=== PATIENT | male | born 1965 | race Caucasian/White ===

== ENCOUNTER 2023-09-24 16:50 | Emergency (ER) | payer OTHER, SELFPAY ==
[2023-09-24 17:15] VITALS: BP 140/92
[2023-09-24 19:11] VITALS: BP 139/85
[2023-09-24 19:15] LABS: % Basophils 1.3 % (0-2); % Eosinophils 5.7 % (0-6); % Immature Granulocytes 0.4 % (0-0.5); % Lymphocytes 24.2 % (20.5-51.1); % Monocytes 7.7 % (1.7-9.3); % Neutrophils 60.7 % (42.2-75.2); Absolute Basophils 0.1 10^3/uL (0-0.2); Absolute Eosinophils 0.6 10^3/uL (0-0.7); Absolute Lymphocytes 2.6 10^3/uL (1.2-3.4); Absolute Monocytes 0.8 10^3/uL (0.1-0.6); Absolute Neutrophils 6.4 10^3/uL (1.4-6.5); Hematocrit 53.1 % (39.0-52.0); Hemoglobin 18.6 g/dL (13.0-18.0); Mean Corpuscular Volume 85.8 fL (80.0-94.0); Mean Platelet Volume 8.6 fL (7.4-10.4); Nucleated Red Blood Cells % 0 % (-); Platelet Count 251 10^3/uL (130-400); Red Blood Cell Count 6.19 10^6/uL (4.70-6.10); Red Cell Dist. Width 12.9 % (11.5-14.5); White Blood Cell Count 10.5 10^3/uL (4.8-10.8)
[2023-09-24 19:27] LABS: APTT 31.5 Sec (23.4-35.0)
[2023-09-24 19:39] LABS: NT-proBNP < 20.0 pg/ml; Troponin I < 0.012 ng/ml
[2023-09-24 19:43] LABS: ALT (SGPT) 36 U/L (0-50); AST (SGOT) 40 U/L (17-59); Albumin 4.8 g/dl (3.5-5.0); Alkaline Phosphatase 51 U/L (38-126); Blood Urea Nitrogen 19 mg/dl (9-20); Calcium 9.6 mg/dl (8.4-10.2); Carbon Dioxide 26 mmol/L (22-30); Chloride 102 mmol/L (98-107); Glucose 89 mg/dl (70-99); Potassium 4.5 mmol/L (3.5-5.1); Sodium 134 mmol/L (135-145); Total Bilirubin 0.7 mg/dl (0.2-1.3); Total Protein 7.6 g/dl (6.3-8.2); eGFR > 60.00
[2023-09-24 20:12] VITALS: BP 127/74
[2023-09-24 20:50] VITALS: BP 137/90; BP 147/80; PULSE 74; PULSE 75
--- NOTE | 2023-09-24 20:51 | ED.GENMED ---
History of Present Illness
General
Chief Complaint: Breathing Problem
Source: patient
Exam Limitations: none
Time Seen by Provider: 09/24/23 20:03
Nursing documentation reviewed up to this point in time: agreed with
Travel History
Have you had any contact with someone who has COVID-19?: No
Do you have any symptoms of coronavirus? Fever > 100 degrees, chills, cough, shortness of breath, sore throat, loss of taste or smell, muscle aches, or headache?: No
History of Present Illness
History of Present Illness:
57-year-old male with a history of low testosterone on testosterone therapy, hyperlipidemia, family history of sudden /coronary disease presents for episodic shortness of breath and lightheadedness over the last couple of days. Patient says it
started actually before shoulder surgery which he had on 1�26 at [facility]. It was an arthroscopic right shoulder surgery to clean out his shoulder after previous surgery a year before. Patient says the day before the surgery he noticed a little bit
of windedness but he thought it was because he was stressed. He had the surgery, the following day felt okay, just fatigued from the anesthesia. He is not taking any pain meds. The following day on 1�28 he noticed an episode where he walked
about 100 yards and felt winded. This was unusual. He never got chest pain. He said he felt a little bit lightheaded during this episode. The following day he had another episode where he walked from the car into his house and felt a little bit
winded. He called [facility] and spoke with them and they said to follow-up with his family doctor which she did the following day. Patient said that they did an EKG in the office and sent him for outpatient labs. Patient said at this point he has
not had exertional symptoms anymore. He has had actual symptoms sometimes at rest but very sparingly, lasting a couple of minutes where he feels lightheaded and a little winded. The outpatient labs included a D-dimer and he was told that if his
dimer was elevated he should come to the hospital for CAT scan. Patient has not had any leg swelling, cough, URI symptoms, syncope, room spinning dizziness, headache or neck pain. He has had no vision changes
Patient takes his blood pressure during these episodes at home and they have been normal, 120s over 80s. He came today because of the known elevated D-dimer and he came for a CAT scan to rule out a blood clot. Patient has not had any pleural pain,
he has no symptoms currently and says the last time he felt symptoms was while watching TV on the couch at 1 PM today.
Past History
Past History
ED Past Medical History: Hypercholesterolemia and Other (Chronic sinus disease, Diverticulosis)
ED Past Surgical History: Bowel resection (Sigmoid bowel resection August 2021), Orthopedic and Other (hernia repair)
Social History
Tobacco: Former smoker
Alcohol: Occasional
Drug: None
Personal:
Living: with family
Employment: Employed
Family History
Family History: Diabetes and CAD
Phy Exam
Physical Exam
Physical Exam:
GENERAL: Alert , in no apparent distress, no tachypnea, very comfortable, speaking in full sentences
EYE: pupils equal and reactive
NECK: Supple
ENT: o/p clr, mmm.
CARDIAC: Regular rate and rhythm .
LUNGS: Clear breath sounds bilaterally, no acute respiratory distress, no wheezes/rales/rhonchi
ABDOMEN: Soft, without focal tenderness, no r/g, no cvat, normal bowel sounds
NEUROLOGICAL: Alert and oriented, no focal neuro deficits
SKIN: Warm and dry, skin intact.
MUSCULOSKELETAL: No edema, well perfused. neg fareed's sign
PSYCH: Normal and appropriate interaction.
Scores
Heart Failure Risk
Heart Failure Risk Score: Not Applicable
Course
Orders/Labs/Results
Orders:
Orders
09/24/23 18:52
ECG [Electrocardiogram (*1)] Urgent
Reason for Study: Shortness of Breath
EKG- Treatment ONCE
09/24/23 18:54
Complete Blood Count/With Diff Urgent
Comprehensive Metabolic Panel Urgent
NT-proBNP Urgent
PTT Urgent
Troponin I Urgent
09/24/23 20:01
CT Chest Pe Study Urgent
Comment:
Reason For Exam: SOB recent surgery
Abnormal Lab Results
09/24/23
18:54
RBC 6.19 H 10^6/uL
(4.70-6.10)
Hgb 18.6 H g/dL
(13.0-18.0)
Hct 53.1 H %
(39.0-52.0)
Absolute Monos (auto) 0.8 H 10^3/uL
(0.1-0.6)
Sodium 134 L mmol/L
(135-145)
09/24/23 18:54
09/24/23 18:54
Vital Signs
Initial and Last Documented VS:
Initial Vital Signs
Temp Pulse Resp BP Pulse Ox
98.9 F 84 18 140/92 98
09/24/23 17:15 09/24/23 17:15 09/24/23 17:15 09/24/23 17:15 09/24/23 17:15
Last Documented Vital Signs
Temp Pulse Resp BP Pulse Ox
98.9 F 73 18 127/74 99
09/24/23 17:15 09/24/23 20:12 09/24/23 20:12 09/24/23 20:12 09/24/23 20:12
MDM/Problems Addressed
Differential Diagnosis Includes:
pneurmonia, PE, anxiety, chf, acs, aoritc stenosis
MDM/Problems Addressed:
57 y/o M with recent shoulder surgery having episodes of both exertional dyspnea and dsypnea at rest associated with lightheadedness but not syncope
Over the last several days. Patient has not had significant symptoms or continuous symptoms but very sporadic and sparing symptoms however he had seen his family doctor who sent an outpatient D-dimer which was elevated so he was sent in. Patient
has been on testosterone for a long time. He has a slight erythrocytosis but otherwise his labs were unremarkable, he had a nonischemic EKG, and negative CT PE study. His orthostatics were negative, he did drop systolic blood pressure about 10
with standing but had no change in his heart rate and no symptoms. Patient is not having any neck pain or dizziness associated with turning his head, headache, concern for carotid dissection. He was able to ambulate without dropping his oxygen
saturation. I discussed the case with ED attending we both felt that the patient could be safely discharged at this time for outpatient cardiology follow-up which she already has scheduled.
*Critical Care Note
Total Time (30-74mins, 75-104mins- exclusive of procedures): Not Applicable
ED Attending Note
-
Portions of this chart may have been created with voice recognition software.� Occasional wrong word or��sound alike� substitutions may have occurred due to the inherent limitations of voice recognition software.
Discharge Plan
Departure
Patient Disposition: Home (Routine Discharge)
Date of Disposition: 09/24/23
Time of Disposition: 20:58
Patient with high blood pressure during this ER visit?: No
Condition: Fair
Covid-19: Not Applicable
Discharge Problem:
Dyspnea
Instructions: Shortness of Breath (Dyspnea) (DC)
Prescriptions:
No Action
testosterone [AndroGel] 75 GM gel in metered-dose pump
1.62 mg topical .MONTUTHUFR
Patient Comments:
5 days a week
psyllium husk (aspartame) [Metamucil Fiber Singles] 1 PACKET powder in packet
1 packet PO DAILY PRN (Reason: constipation)
cholecalciferol (vitamin D3) 1,000 UNITS tablet
1,000 units PO DAILY
Super Beet
1 tab PO DAILY
amoxicillin-pot clavulanate 1 TABLET tablet
1 tab PO BID Qty: 20 0RF
Referrals:
Nico Redman MD [Family Provider] - Follow up in 2-3 days
Activity Restrictions/Additional Instructions:
Your workup here today was very reassuring. Your red cells were a smidgen high at 18. Please make sure your family doctor knows this regarding her testosterone dose. But you had no signs of congestive heart failure, pneumonia, blood clot, heart
attack. You should be very careful with what you do as far as exertion for right now. Make sure to return for any worsening symptoms like chest pain, worsening shortness of breath with walking, passing out, fevers or chills etc. Otherwise
follow-up with your doctor next week and make sure to see the central office mechanic. You can try calling and saying that you were in the ER to move up your appointment from October.
Interventions
Interventions:
*Risk Screen - Suicide Last Done: 09/24/23 19:11
*General Assessment Last Done: 09/24/23 19:11
*Neglect/Abuse Screening Last Done: 09/24/23 19:11
ED- Fall Risk Assessment Last Done: 09/24/23 19:11
*ED COVID-19 Vaccine History Last Done: 09/24/23 17:15
*Nursing Disposition Last Done: 09/24/23 21:08
ED- Cardiac Assessment Last Done: 09/24/23 19:11
ED- Pulmonary Assessment Last Done: 09/24/23 19:11
Discharge Date and Time
Discharge Date/Time: 09/24/23 21:09
== END 2023-09-24 21:09 | disposition home or self-care (01) ==
LOC: EMR 16:50
PROVIDERS: EMERGENCY PHYSICIAN Emergency Medicine; FAMILY PHYSICIAN Family Medicine
DX: R06.09 Other forms of dyspnea (principal); R42 Dizziness and giddiness; Z87.891 Personal history of nicotine dependence
CPT/HCPCS: 99285; 71275; 80053; 83880; 84484; 85025; 85730; 93005; Q9967

== ENCOUNTER 2025-06-30 09:48 | Emergency (ER) | payer OTHER, SELFPAY ==
[2025-06-30 09:53] VITALS: BP 175/103
[2025-06-30 10:00] VITALS: BP 190/100
--- NOTE | 2025-06-30 10:42 | ED.GENMED ---
History of Present Illness
General
Chief Complaint: Breathing Problem
Time Seen by Provider: 06/30/25 10:21
History of Present Illness
History of Present Illness:
59-year-old male with history of spinal stenosis/chronic back pain and hyperlipidemia presents to the emergency department for evaluation of dyspnea on exertion that has been gradually worsening for the past several months. 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 Denies any exertional chest pain or leg swelling. No associated fevers or chills. Does admit to occasional tobacco use but has discontinued this over the past
3 weeks. Has been undergoing epidural injections for his spinal stenosis and admits to essentially being very sedentary due to worsening back pain. Has a significant family history of precocious coronary disease.
Past History
Past History
ED Past Medical History: Hypercholesterolemia and Other (Chronic sinus disease, Diverticulosis)
ED Past Surgical History: Bowel resection (Sigmoid bowel resection August 2021), Orthopedic and Other (hernia repair)
Social History
Tobacco: Former smoker
Alcohol: Occasional
Drug: None
Personal:
Living: with family
Employment: Employed
Family History
Family History: Diabetes and CAD
Review of Systems
Review of Systems
Allergies reviewed?: Yes
All Other Systems: ROS reviewed and negative except as documented in HPI and ROS
Phy Exam
Physical Exam
Physical Exam:
GEN: Well appearing, NAD, WDWN
HEENT: Oral mucosa moist, no scleral icterus
Cardiac: Regular rate and rhythm, no murmur
Lung: No respiratory distress, no tachypnea, lungs clear to auscultation
MSK: No gross deformity or injuries
Skin: Good color, no pallor or jaundice, no rashes
Neuro: AO x3, moves all extremities freely
Psych: Calm, cooperative
Scores
Heart Failure Risk
Heart Failure Risk Score: Not Applicable
Course
Orders/Labs/Results
Orders:
Orders
06/30/25 09:57
EKG [Electrocardiogram (*1)] Urgent
Reason for Study: Shortness of Breath
EKG- Treatment ONCE
06/30/25 10:37
CR Chest - 2 Views Urgent
Comment:
Reason For Exam: DASH
06/30/25 11:00
Complete Blood Count/With Diff Urgent
Comprehensive Metabolic Panel Urgent
D-Dimer Urgent
NT-proBNP Urgent
Troponin I Urgent
Abnormal Lab Results
06/30/25
11:00
RBC 6.20 H 10^6/uL
(4.70-6.10)
Hct 52.2 H %
(39.0-52.0)
Absolute Monos (auto) 0.8 H 10^3/uL
(0.1-0.6)
Lymphocytes % 17.2 L %
(20.5-51.1)
06/30/25 11:00
06/30/25 11:00
Vital Signs
Initial and Last Documented VS:
Initial Vital Signs
Temp Pulse Resp BP Pulse Ox
98.6 F 79 16 175/103 96
06/30/25 09:53 06/30/25 09:53 06/30/25 09:53 06/30/25 09:53 06/30/25 09:53
Last Documented Vital Signs
Temp Pulse Resp BP Pulse Ox
98.6 F 72 16 154/77 99
06/30/25 09:53 06/30/25 12:00 06/30/25 09:53 06/30/25 12:00 06/30/25 12:00
MDM/Problems Addressed
MDM/Problems Addressed:
Patient's workup is grossly unremarkable. He has no chest pain concerning for angina however his progressive exertional dyspnea is certainly concerning, doubt this represents CHF. Chronic conditions such as pulmonary Kiko hypertension versus
interstitial lung disease versus physical deconditioning are considered. Recommend outpatient echocardiogram and cardiology follow-up for further clarity
Comment
Comment:
EKG independently interpreted by me shows normal sinus rhythm at a rate of [address] changes concerning for ischemia
*Pulse Oximetry
SaO2: 96
Oxygen Mode of Delivery: Room air
Patient hypoxic: no
*Critical Care Note
Total Time (30-74mins, 75-104mins- exclusive of procedures): Not Applicable
ED Attending Note
-
Portions of this chart may have been created with voice recognition software.� Occasional wrong word or��sound alike� substitutions may have occurred due to the inherent limitations of voice recognition software.
Discharge Plan
Departure
Patient Disposition: Home (Routine Discharge)
Date of Disposition: 06/30/25
Time of Disposition: 11:55
Patient with high blood pressure during this ER visit?: Yes
Discharge Problem:
Exertional dyspnea
Instructions: Shortness of Breath (Dyspnea) (DC)
Prescriptions:
No Action
testosterone [AndroGel] 75 GM gel in metered-dose pump
1.62 mg topical .MONTUTHUFR
Patient Comments:
5 days a week
psyllium husk [Metamucil Fiber (aspartame)] 1 PACKET powder in packet
1 packet PO DAILY PRN (Reason: constipation)
cholecalciferol (vitamin D3) 1,000 UNITS tablet
1,000 units PO DAILY
Super Beet
1 tab PO DAILY
amoxicillin-pot clavulanate 1 TABLET tablet
1 tab PO BID Qty: 20 0RF
Referrals:
Allen Sanders DO [Active, Cardiology]
Nico Redman MD [Family Provider, Family Practice]
Activity Restrictions/Additional Instructions:
Follow-up with the contact lens blocker and cutter listed, if you cannot see the contact lens blocker and cutter within the next 2 to 3 months please contact your primary care physician and asked them to order an echocardiogram if possible. Your blood pressure was markedly elevated in
the ER, please follow-up with either cardiology or primary care doctor to have this reevaluated and discuss methods to reduce your blood pressure
Interventions
Interventions:
*Risk Screen - Suicide Last Done: 06/30/25 09:53
*General Assessment Last Done: 06/30/25 10:45
*Neglect/Abuse Screening Last Done: 06/30/25 09:53
*ED- Fall Risk Assessment Last Done: 06/30/25 10:45
*ED COVID-19 Vaccine History Last Done: 06/30/25 10:45
*ED Influenza Vaccine History Last Done: 06/30/25 10:45
*Nursing Disposition Last Done: 06/30/25 12:40
ED- Cardiac Assessment Last Done: 06/30/25 11:42
ED- Pulmonary Assessment Last Done: 06/30/25 11:42
Discharge Date and Time
Discharge Date/Time: 06/30/25 12:39
Print Language: SAMI
[2025-06-30 10:44] VITALS: BMI 36.3
[2025-06-30 11:09] LABS: Hematocrit 52.2 % (39.0-52.0); Hemoglobin 17.4 g/dL (13.0-18.0); Mean Corp Hgb Conc. 33.3 g/dL (33.0-37.0); Mean Corpuscular Volume 84.2 fL (80.0-94.0); Nucleated Red Blood Cells % 0 % (-); Platelet Count 218 10^3/uL (130-400); Red Cell Dist. Width 14.0 % (11.5-14.5)
[2025-06-30 11:23] LABS: ALT (SGPT) 27 U/L (0-50); AST (SGOT) 26 U/L (17-59); Albumin 4.4 g/dl (3.5-5.0); Alkaline Phosphatase 52 U/L (38-126); Blood Urea Nitrogen 14 mg/dl (9-20); Calcium 10.0 mg/dl (8.4-10.2); Carbon Dioxide 25 mmol/L (22-30); Chloride 103 mmol/L (98-107); Estimated Creatinine Clearance 108 ml/min; Glucose 95 mg/dl (70-99); Potassium 4.5 mmol/L (3.5-5.1); Sodium 136 mmol/L (135-145); Total Protein 6.9 g/dl (6.3-8.2); eGFR > 60.00
[2025-06-30 11:24] LABS: D-Dimer 0.49 ug/mlFEU (0.00-0.50)
[2025-06-30 11:33] LABS: Troponin I 0.016 ng/ml
[2025-06-30 12:00] VITALS: BP 154/77
== END 2025-06-30 12:39 | disposition home or self-care (01) ==
LOC: EMR 09:48
PROVIDERS: Physician Assistant; EMERGENCY PHYSICIAN Emergency Medicine; FAMILY PHYSICIAN Family Medicine
DX: R06.02 Shortness of breath (principal); E78.00 Pure hypercholesterolemia, unspecified; M48.00 Spinal stenosis, site unspecified; Z87.891 Personal history of nicotine dependence
CPT/HCPCS: 99284; 71046; 80053; 83880; 84484; 85025; 85379; 93005

== ENCOUNTER 2025-08-11 07:48 | Emergency (ER) | payer OTHER, SELFPAY ==
[2025-08-11 08:10] VITALS: BP 157/95
[2025-08-11 08:56] LABS: COVID-19 Antigen Negative (Negative)
--- NOTE | 2025-08-11 09:26 | ED.GENMED ---
History of Present Illness
General
Chief Complaint: Throat Problem
Source: patient
Exam Limitations: none
Time Seen by Provider: 08/11/25 09:02
Nursing documentation reviewed up to this point in time: agreed with
History of Present Illness
History of Present Illness:
see MDM
Past History
Past History
ED Past Medical History: Hypercholesterolemia and Other (Chronic sinus disease, Diverticulosis)
ED Past Surgical History: Bowel resection (Sigmoid bowel resection August 2021), Orthopedic and Other (hernia repair)
Social History
Tobacco: Former smoker
Alcohol: Occasional
Drug: None
Personal:
Living: with family
Employment: Employed
Family History
Family History: Diabetes and CAD
Review of Systems
Review of Systems
Allergies reviewed?: Yes
All Other Systems: Not applicable
Phy Exam
Physical Exam
Physical Exam:
GENERAL: Alert , in no apparent distress
EYE: pupils equal and reactive
NECK: Supple
ENT: b/l TM s clear, pharynx erythematous uvula is mildly to moderately swollen; no exudate; midline; phonation normal, tolerating secretions
CARDIAC: Regular rate and rhythm, no edema
LUNGS: Clear breath sounds bilaterally, no acute respiratory distress, no wheezes/rales/rhonchi, occ cough
ABDOMEN: Soft, without focal tenderness, no r/g, no cvat, normal bowel sounds
NEUROLOGICAL: Alert and oriented, no focal neuro deficits
SKIN: Warm and dry, skin intact.
MUSCULOSKELETAL: No edema, well perfused.
PSYCH: Normal and appropriate interaction.
Course
Orders/Labs/Results
Orders:
Orders
08/11/25 08:19
COVID-19 Antigen Urgent
Source: Nasal Swab
INF RAPID [Influenza A+B Rapid Molecular] Urgent
MARIBEL Source: Nasal Swab
Specimen Description:
Date Specimen was Collected: 08/11/25
Time Specimen was Collected: 08:13
Rapid Strep Group A Urgent
MARIBEL Source: Throat/Pharynx
Specimen Description:
Date Specimen was Collected: 08/11/25
Time Specimen was Collected: 08:13
08/11/25 09:21
Acetaminophen [Tylenol] 1,000 mg PO NOW STA
Dexamethasone Sod Phosphate [Decadron] 10 mg IV NOW STA
Neck Soft Tissue [CR Soft Tissue Neck ] Urgent
Comment:
Reason For Exam: sore throat, swollen uvula, eval epiglottis
08/11/25 09:22
CR Chest - 2 Views Urgent
Comment:
Reason For Exam: cough, slight hemoptysis
08/11/25 10:09
Complete Blood Count/With Diff Urgent
Comprehensive Metabolic Panel Urgent
08/11/25 11:05
Ketorolac [Toradol] 30 mg IV NOW STA
Abnormal Lab Results
08/11/25
10:09
RDW 16.6 H %
(11.5-14.5)
Absolute Monos (auto) 0.8 H 10^3/uL
(0.1-0.6)
Monocytes % 9.9 H %
(1.7-9.3)
08/11/25 10:09
08/11/25 10:09
Vital Signs
Initial and Last Documented VS:
Initial Vital Signs
Temp Pulse Resp BP Pulse Ox
37.2 C 85 20 157/95 96
08/11/25 08:10 08/11/25 08:10 08/11/25 08:10 08/11/25 08:10 08/11/25 08:10
Last Documented Vital Signs
Temp Pulse Resp BP Pulse Ox
36.6 C 76 18 142/91 97
08/11/25 11:12 08/11/25 11:12 08/11/25 11:12 08/11/25 11:12 08/11/25 11:12
MDM/Problems Addressed
Differential Diagnosis Includes:
see MDM
MDM/Problems Addressed:
Note:
CHIEF COMPLAINT(S)
Throat discomfort, sensation of airway restriction, and hemoptysis (coughing up blood).
HISTORY OF PRESENT ILLNESS
The patient is a 59-year-old male with a history of high cholesterol, hypertension, and low testosterone. The patient presented with complaints of throat discomfort since approximately 4:00 AM, a sensation of airway restriction, and coughing
accompanied by a small amount of blood mixed with mucus. The patient described the sensation as feeling like there is a 'flap' at the back of the throat, affecting free airway passage. The patient has undergone previous nasal and sinus surgeries
related to a deviated septum, with procedures occurring around 1596-7062.
The patient noted a history of tonsillectomy and removal of adenoids. The throat symptoms are not accompanied by significant fever, but the patient reports some body aches.
pt has not had any signfiicant voice change
PAST MEDICAL AND SURGICAL HISTORY
- High cholesterol
- Hypertension
- Low testosterone
- Tonsillectomy and adenoidectomy
- Nasal surgery for deviated septum
SOCIAL DETERMINANTS AFFECTING HEALTH
The patient casually mentioned alcohol consumption may be lessened upon fpc. 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
SOCIAL HISTORY
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
PHYSICAL EXAM
- Throat: Uvula noted to be swollen with redness.
Nursing notes reviewed and vital signs reviewed.
PLAN
1. Administer intravenous steroids to reduce uvular swelling and alleviate symptoms.
2. Obtain an X-ray of the neck soft tissues to assess for possible epiglottis swelling.
3. Perform chest X-ray to evaluate the lungs due to hemoptysis.
4. Check laboratory results, and draw additional labs to aid diagnosis.
5. Provide supportive care, including ensuring adequate hydration and suggesting soothing throat agents.
DIFFERENTIAL DIAGNOSIS
The Differential Diagnosis includes, in no particular order and is not limited to:
1. Viral Upper Respiratory Infection
2. Strep Throat (despite negative test, atypical presentation could occur)
3. Angioedema (potentially secondary to losartan)
4. Epiglottitis (unlikely due to adult presentation and vaccination history)
5. Infectious Mononucleosis
6. Allergic Reaction
7. Laryngitis
8. Acute tonsillitis
9. Pharyngitis
10. Gastroesophageal Reflux Disease (GERD)
59 y/o M
newly on lisinopril for bp
here with swollen uvula this am
slight cough
did have some blood tinged sputum as well but minimal
no AC
no cp, sob
pt feels the uvular swelling is stable since waking
scheduled for back ablation surgery for chronic back pain in 2 days
concerned about needing abx or steroids but willing to have it
no fever, chills but felt muscle aches
this is likely infectious cause of uvulitis rather than angioedema but will consider stopping the lisinopril for now and having pt call pcp rgarding bp med
steroids will be given for 3 days starting tomorrow
tylenol for pain
strep, covi, flu neg,
labs reassuring
pt reassessed, complained mild headache but didn't feel the uvula was any larger
on exam it looks the same
xrays indep reviewed, normal
suspect viral syndrome
toradol given for headache and reassessed andf eels better
no fever
will recommend holding the lisinoipril for now
steroids for afew days
throat culture pending
*Pulse Oximetry
SaO2: 96
Oxygen Mode of Delivery: Room air
Patient hypoxic: no (96)
*Critical Care Note
Total Time (30-74mins, 75-104mins- exclusive of procedures): Not Applicable
ED Attending Note
-
Portions of this chart may have been created with voice recognition software.� Occasional wrong word or��sound alike� substitutions may have occurred due to the inherent limitations of voice recognition software.
Discharge Plan
Departure
Patient Disposition: Home (Routine Discharge)
Date of Disposition: 08/11/25
Time of Disposition: 11:49
Patient with high blood pressure during this ER visit?: Yes
Discharge Problem:
Uvulitis
Instructions: Sore Throat, Adult (DC), BLOOD PRESSURE
Prescriptions:
New
prednisone 50 mg tablet
50 mg PO DAILY Qty: 3 0RF
No Action
testosterone [AndroGel] 75 GM gel in metered-dose pump
1.62 mg topical .MONTUTHUFR
Patient Comments:
5 days a week
psyllium husk [Metamucil Fiber (aspartame)] 1 PACKET powder in packet
1 packet PO DAILY PRN (Reason: constipation)
cholecalciferol (vitamin D3) 1,000 UNITS tablet
1,000 units PO DAILY
Super Beet
1 tab PO DAILY
amoxicillin-pot clavulanate 1 TABLET tablet
1 tab PO BID Qty: 20 0RF
Referrals:
Nico Redman MD [Family Provider, Family Practice] - Follow up in 2-3 days
Activity Restrictions/Additional Instructions:
YOUR UVULA WAS SWOLLEN
THIS COULD BE INFECTIOUS - LIKELY VIRAL
YOUR FLU COVID AND STREP WERE NEGATIVE
WE SENT A THROAT CULTURE TO BE SURE
THERE IS A SMALL POSSIBLITY THIS IS RELATED TO YOUR NEW BP MED
STOP THE LISINOPRIL THIS AND CALL YOUR DOCTOR WEDNESDAY FOR FURHTER RECOMMENDATION
TAKE PREDNISONE ONCE A DAY STARTING TOMORROW FOR 3 MORE DAYS
TYLENOL FOR PAIN
SALT WATER GARGLES
POPSICLES, ETC
YOUR XRAYS WERE NORMAL
IF [place] GET WORSE: MORE SWELLING, TROUBLE SWALLOWING SPIT, TROUBLE BREATHING/TALKING, MORE BLOODY COUGH OR ANY CONCERNS RETURN IMMEDAITELY
Interventions
Interventions:
*General Assessment Last Done: 08/11/25 08:10
[facility] Risk Assessment Tool Last Done: 08/11/25 10:34
*Risk Screen - Suicide (C-SSRS) Last Done: 08/11/25 10:34
*Nursing Disposition Last Done: 08/11/25 12:28
ED-EENT Assessment Last Done: 08/11/25 10:22
ED- Pulmonary Assessment Last Done: 08/11/25 10:22
Discharge Date and Time
Print Language: ROMANSH
[2025-08-11] MEDS: DECADRON 10 MG IV (10:10)
[2025-08-11] MEDS: TYLENOL 1000 MG PO (10:10)
[2025-08-11 10:32] LABS: Hematocrit 49.1 % (39.0-52.0); Hemoglobin 16.4 g/dL (13.0-18.0); Mean Corp Hgb Conc. 33.4 g/dL (33.0-37.0); Mean Corpuscular Volume 84.4 fL (80.0-94.0); Nucleated Red Blood Cells % 0 % (-); Platelet Count 219 10^3/uL (130-400); Red Cell Dist. Width 16.6 % (11.5-14.5)
[2025-08-11 10:38] LABS: ALT (SGPT) 25 U/L (0-50); AST (SGOT) 26 U/L (17-59); Albumin 4.2 g/dl (3.5-5.0); Alkaline Phosphatase 48 U/L (38-126); Blood Urea Nitrogen 18 mg/dl (9-20); Calcium 9.6 mg/dl (8.4-10.2); Carbon Dioxide 29 mmol/L (22-30); Chloride 105 mmol/L (98-107); Glucose 97 mg/dl (70-99); Potassium 4.7 mmol/L (3.5-5.1); Sodium 138 mmol/L (135-145); Total Protein 6.9 g/dl (6.3-8.2); eGFR > 60.00
[2025-08-11] MEDS: TORADOL 30 MG IV (11:08)
[2025-08-11 11:12] VITALS: BP 142/91
== END 2025-08-11 12:28 | disposition home or self-care (01) ==
LOC: EMR 07:48
PROVIDERS: Emergency Medicine; Physician Assistant; EMERGENCY PHYSICIAN Student in an Organized Health Care Education/Training Program; FAMILY PHYSICIAN Family Medicine
DX: K12.2 Cellulitis and abscess of mouth (principal); I10 Essential (primary) hypertension; E78.00 Pure hypercholesterolemia, unspecified; M54.9 Dorsalgia, unspecified; G89.29 Other chronic pain; Z87.891 Personal history of nicotine dependence; Z88.6 Allergy status to analgesic agent; Z88.8 Allergy status to other drugs, medicaments and biological substances
CPT/HCPCS: 99284; 96374; 96375; 70360; 71046; 80053; 85025; 87070; 87502; 87811; 87880

== ENCOUNTER → 2025-08-21 08:47 | Outpatient (REF) | payer OTHER, SELFPAY | LOC: HWRCS 08:47 | PROVIDERS: ATTENDING PHYSICIAN Internal Medicine Critical Care Medicine; FAMILY PHYSICIAN Family Medicine | DX: R06.02 Shortness of breath (principal) | CPT/HCPCS: 93306 ==